=== PATIENT | male | born 2000 | race Caucasian/White ===

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

== ENCOUNTER → 2021-07-10 | Outpatient (CLI) | payer MEDICAID | LOC: M RAD 15:57 | PROVIDERS: ATTEND Urology | DX: N50.82 Scrotal pain (principal) ==

== ENCOUNTER → 2021-07-28 | Outpatient (CLI) | payer OTHER ==
[~2021-07-28] MED LIST: PEPC1TAB5 PO
[2021-07-28 13:16] LABS: HEMATOCRIT 49.1 % (42.0-52.0); HEMOGLOBIN 16.3 g/dl (13.5-17.5); MEAN CORPUSCULAR HEMOGLOBIN 30.3 pg (27.0-33.0); MEAN CORPUSCULAR HGB CONC 33.2 g/dl (32.0-36.5); MEAN CORPUSCULAR VOLUME 91.3 fl (80.0-96.0); PLATELET COUNT, AUTOMATED 210 10^3/uL (150-450); RED BLOOD COUNT 5.38 10^6/uL (4.30-6.10); WHITE BLOOD COUNT 5.2 10^3/uL (4.0-10.0)
[2021-07-28 13:55] LABS: ALBUMIN 3.7 GM/DL (3.2-5.2); ALT/SGPT 56 U/L (12-78); BILIRUBIN,TOTAL 0.5 MG/DL (0.2-1.0); BLOOD UREA NITROGEN 19 MG/DL (7-18); CALCIUM LEVEL 9.4 MG/DL (8.5-10.1); CARBON DIOXIDE LEVEL 29 MEQ/L (21-32); CHLORIDE LEVEL 104 MEQ/L (98-107); CREATININE FOR GFR 0.93 MG/DL (0.70-1.30); GLOMERULAR FILTRATION RATE > 60.0 (>60); GLUCOSE, FASTING 109 MG/DL (70-100); POTASSIUM SERUM 4.9 MEQ/L (3.5-5.1); SODIUM LEVEL 139 MEQ/L (136-145); TOTAL PROTEIN 6.8 GM/DL (6.4-8.2)
== END ==
LOC: M LAB 12:24
PROVIDERS: ATTEND Urology
DX: N50.9 Disorder of male genital organs, unspecified (principal)

== ENCOUNTER → 2021-07-28 | Outpatient (CLI) | payer OTHER | LOC: M LABSMTC 12:06 | PROVIDERS: ATTEND Anesthesiology | DX: Z01.812 Encounter for preprocedural laboratory examination (principal); Z20.822 Contact with and (suspected) exposure to COVID-19 ==

== ENCOUNTER → 2021-08-14 | Outpatient (CLI) | payer OTHER | LOC: M LABSMTC 09:46 | PROVIDERS: ATTEND Anesthesiology | DX: Z01.818 Encounter for other preprocedural examination (principal); Z11.52 Encounter for screening for COVID-19 ==

== ENCOUNTER → 2021-08-30 | Outpatient (CLI) | payer OTHER | LOC: M LABSMTC 09:38 | PROVIDERS: ATTEND Anesthesiology | DX: Z01.812 Encounter for preprocedural laboratory examination (principal); Z20.822 Contact with and (suspected) exposure to COVID-19 ==

== ENCOUNTER 2021-09-04 08:34 | Day surgery (SDC) | payer OTHER ==
[~2021-09-04] VITALS: Ht 177.8 cm; Wt 75.3 kg
[~2021-09-04 08:34] MED LIST changes: +ceFAZolin SOD 2 GM in IV 1 EA IV ONE
[2021-09-04] MEDS ORDERED: LIDOCAINE 1% SDV 30ML VIAL As Ordered ONE (10:50)
[2021-09-04] MEDS ORDERED: BACITRACIN OINTMENT 30GM TUBE As Ordered ONE (10:50)
[2021-09-04] MEDS ORDERED: BUPIVACAINE HCL 0.25% 30ML VIAL As Ordered ONE (10:50)
[2021-09-04] MEDS ORDERED: fentaNYL 100 MCG/2 ML INJECTION As Ordered ONE (11:15)
[2021-09-04] MEDS ORDERED: propofoL 200 MG/20 ML VIAL As Ordered ONE (11:15)
[2021-09-04] MEDS ORDERED: ONDANSETRON 4MG/2ML VIAL As Ordered ONE (11:15)
[2021-09-04] MEDS ORDERED: LIDOCAINE 2% 100MG/5ML SDV (FOR ANES.) As Ordered ONE (11:15)
[2021-09-04] MEDS ORDERED: MIDAZOLAM INJ 2MG/2ML VIAL (J2250 PER 1MG) As Ordered ONE (11:15)
[2021-09-04] MEDS ORDERED: dexameTHASONE 4 MG/ML 1ML VIAL (J1100 PER 1MG) As Ordered ONE (11:15)
[2021-09-04] MEDS ORDERED: KETOROLAC 60MG 2ML VIAL As Ordered ONE (11:26)
[2021-09-04] MEDS ORDERED: BACT800T5 PO (11:47)
[2021-09-04] MEDS ORDERED: PERCOCET 5MG/325MG TAB PO PRN (12:00)
[2021-09-04] MEDS ORDERED: ONDANSETRON 4MG/2ML VIAL IV PRN (12:00)
[2021-09-04] MEDS ORDERED: METOCLOPRAMIDE INJ 10MG/2ML VIAL (J2765 PER 1) IV PRN (12:00)
[2021-09-04] MEDS ORDERED: LR 1,000 ML IV SCH (12:00)
[2021-09-04 12:40] VITALS: BP 129/71
== END 2021-09-04 12:59 | disposition home or self-care (01) ==
LOC: M SDC 08:34
PROVIDERS: ATTEND Urology
DX: D22.9 Melanocytic nevi, unspecified (principal); K21.9 Gastro-esophageal reflux disease without esophagitis; Z79.899 Other long term (current) drug therapy; F12.10 Cannabis abuse, uncomplicated; G43.909 Migraine, unspecified, not intractable, without status migrainosus; F41.9 Anxiety disorder, unspecified; F32.9 Major depressive disorder, single episode, unspecified
CPT/HCPCS: 11420; 17110; 88305; J0690; J1100; J1885; J2250; J2405; J3010

== ENCOUNTER 2022-06-20 16:04 | Emergency (ER) | payer OTHER, MEDICAID ==
[~2022-06-20] VITALS: Ht 177.8 cm; Wt 61.4 kg
[~2022-06-20 16:04] MED LIST changes: +BACT800T5 PO; -ceFAZolin SOD 2 GM in IV 1 EA IV ONE
[2022-06-20 16:05] VITALS: BP 134/82
== END 2022-06-20 16:30 | disposition left against medical advice (07) ==
LOC: M ED 16:04
DX: Z53.21 Procedure and treatment not carried out due to patient leaving prior to being seen by health care provider (principal)

== ENCOUNTER 2022-08-03 12:03 | Emergency (ER) | payer OTHER, MEDICAID ==
[~2022-08-03] VITALS: Ht 177.8 cm; Wt 71.7 kg
[2022-08-03] MEDS ORDERED: PANT40TA29 (12:11)
[2022-08-03 14:55] LABS: GC DNA AMPLIFICATION NEGATIVE (NEGATIVE)
[2022-08-03] MEDS ORDERED: KETO2CR TOP (15:02)
[2022-08-03] MEDS ORDERED: CIPR-249 PO (15:02)
[2022-08-03 15:10] VITALS: BP 155/70
== END 2022-08-03 15:11 | disposition home or self-care (01) ==
LOC: M ED 12:03
DX: N39.0 Urinary tract infection, site not specified (principal); N48.1 Balanitis; F41.9 Anxiety disorder, unspecified; F32.A Depression, unspecified; K21.9 Gastro-esophageal reflux disease without esophagitis; F12.10 Cannabis abuse, uncomplicated; Z79.2 Long term (current) use of antibiotics; Z79.899 Other long term (current) drug therapy

== ENCOUNTER → 2023-03-01 | Day surgery (SDC) | payer OTHER ==
[~2023-03-01] VITALS: Ht 177.8 cm; Wt 62.7 kg
[~2023-03-01] MED LIST changes: +CIPR-249 PO; +ESMOLOL INJ 100MG/10ML VIAL As Ordered ONE; +FAMO40TA3 PO; +KETO2CR TOP; +LIDOCAINE 2% 100MG/5ML SDV (FOR ANES.) As Ordered ONE; +NS 1,000 ML IV ONE; +PANT40TA29; +fentaNYL 100 MCG/2 ML INJECTION As Ordered ONE; +propofoL 200 MG/20 ML VIAL As Ordered ONE
[2023-03-01 15:23] VITALS: TEMP 97.1
[2023-03-01 15:45] VITALS: BP 103/59; O2SAT 100
== END | disposition home or self-care (01) ==
LOC: M OPP 12:50
PROVIDERS: ATTEND Internal Medicine Gastroenterology
DX: K63.5 Polyp of colon (principal); R19.4 Change in bowel habit; R10.84 Generalized abdominal pain; K29.70 Gastritis, unspecified, without bleeding; R11.2 Nausea with vomiting, unspecified; Z79.1 Long term (current) use of non-steroidal anti-inflammatories (NSAID)
CPT/HCPCS: 43239; 45380; 88305; J1805; J3010

== ENCOUNTER 2023-06-09 07:06 | Emergency (ER) | payer OTHER ==
[~2023-06-09 07:06] MED LIST changes: -ESMOLOL INJ 100MG/10ML VIAL As Ordered ONE; -LIDOCAINE 2% 100MG/5ML SDV (FOR ANES.) As Ordered ONE; -NS 1,000 ML IV ONE; -fentaNYL 100 MCG/2 ML INJECTION As Ordered ONE; -propofoL 200 MG/20 ML VIAL As Ordered ONE
[2023-06-09] MEDS ORDERED: CEPH500T (07:19)
[2023-06-09 10:24] LABS: CHLAMYDIA DNA AMPLIFICATION NEGATIVE (NEGATIVE); GC DNA AMPLIFICATION NEGATIVE (NEGATIVE)
[2023-06-09] MEDS ORDERED: CLOTRIMAZOLE 1% TOPICAL CREAM 30GM TOP STA (11:24)
[2023-06-09 11:39] VITALS: BP 127/77; TEMP 98.6; O2SAT 97
== END 2023-06-09 12:01 | disposition home or self-care (01) ==
LOC: M ED 07:06
DX: N48.1 Balanitis (principal); Z79.2 Long term (current) use of antibiotics

== ENCOUNTER 2024-12-23 17:27 | Emergency (ER) | payer MEDICAID, OTHER, SELFPAY ==
[~2024-12-23] VITALS: Ht 177.8 cm; Wt 63.0 kg
[~2024-12-23 17:27] MED LIST changes: +CEPH500T; +METR-265 PO
[2024-12-23 21:35] VITALS: BP 139/88; TEMP 99.2; O2SAT 99
== END 2024-12-23 21:39 | disposition left against medical advice (07) ==
LOC: M ED 17:27
DX: Z53.21 Procedure and treatment not carried out due to patient leaving prior to being seen by health care provider (principal)

== ENCOUNTER 2025-04-19 01:23 | Emergency (ER) | payer SELFPAY ==
[~2025-04-19] VITALS: Ht 175.3 cm; Wt 63.6 kg
[2025-04-19 06:18] LABS: BASO # 0.0 10^3/uL (0.0-0.2); BASO % 0.1 % (0.0-1.0); EOS # 0.0 10^3/uL (0.0-0.5); EOS % 0.0 % (0.0-3.0); LYMPH # 0.6 10^3/uL (1.5-5.0); LYMPH % 3.6 % (24.0-44.0); MONO # 0.6 10^3/uL (0.0-0.8); MONO % 3.4 % (2.0-8.0); NEUTROPHILS # 14.7 10^3/uL (1.5-8.5); NEUTROPHILS % 92.3 % (36.0-66.0); PLATELET COUNT, AUTOMATED 243 10^3/uL (150-450)
[2025-04-19] MEDS: PANTOPRAZOLE 40MG VIAL IV ONE (06:31)
[2025-04-19] MEDS: FAMOTIDINE IV BAG 20 MG in IV 1 EA IV ONE (06:31)
[2025-04-19] MEDS: NS (Normal Saline) 0.9% 1,000 ML IV ONE (06:31)
[2025-04-19] MEDS: SUCRALFATE 1 GM TAB PO ONE (06:31)
[2025-04-19] MEDS: ONDANSETRON 4MG/2ML VIAL IV ONE (06:31)
[2025-04-19 06:40] LABS: ALT/SGPT 27 U/L (7.0-40); AST/SGOT 32 U/L (<34); CALCIUM LEVEL 10.0 MG/DL (8.5-10.1); CARBON DIOXIDE LEVEL 25 MMOL/L (20-31); CHLORIDE LEVEL 100 MMOL/L (98-107); CREATININE FOR GFR 0.96 MG/DL (0.70-1.30); GLOMERULAR FILTRATION RATE > 90.0 (>60); POTASSIUM SERUM 4.3 MMOL/L (3.5-5.1); SODIUM LEVEL 140 MMOL/L (136-145)
[2025-04-19 06:43] LABS: INR 1.07
[2025-04-19] MEDS ORDERED: ISOVUE-370 76% 100 ML VIAL As Ordered ONE (07:10)
[2025-04-19] MEDS ORDERED: PROT1TAB2 PO (08:22)
[2025-04-19] MEDS ORDERED: CARA1TAB6 PO (08:22)
[2025-04-19] MEDS ORDERED: ONDA-282 PO (08:22)
[2025-04-19 08:31] VITALS: BP 129/71; TEMP 99.7; O2SAT 98
== END 2025-04-19 08:47 | disposition home or self-care (01) ==
LOC: M ED 01:23
DX: K92.0 Hematemesis (principal); A09 Infectious gastroenteritis and colitis, unspecified; K21.9 Gastro-esophageal reflux disease without esophagitis; F10.10 Alcohol abuse, uncomplicated; Z79.899 Other long term (current) drug therapy
CPT/HCPCS: 74174; 80053; 83690; 85025; 85610; 85730; 86850; 86900; 86901; 96365; 96366; 96375; 99285; J1308; J2405; J2470; Q9967